=== PATIENT | female | born 1995 | race Caucasian/White ===

== ENCOUNTER 2018-02-14 03:37 | Emergency (ER) | payer OTHER ==
--- NOTE | 2018-02-14 03:48 | ED ---
Substance Abuse/Use - HPI Summary HPI Summary: This patient is a 22 year old F BIBA to [facility] due to etoh intoxication prior to arrival. Patient states she had 8 drinks of liquor this evening. She reports nausea, vomiting, and mild abdominal pain. - History Of Current Complaint Chief Complaint: EDSubstanceAbuse Stated Complaint: ETOH Hx Obtained From: Patient Onset/Duration of Drug/ETOH Abuse: Hours Overdose Characteristics: Oral Aggravating Factor(s): Nothing Alleviating Factor(s): Nothing Associated Signs And Symptoms: Nausea, Vomiting - Allergies/Home Medications Allergies/Adverse Reactions: Allergies Allergy/AdvReac Type Severity Reaction Status Date / Time No Known Allergies Allergy Verified 02/14/18 03:45 Home Medications: Home Medications NK [No Home Medications Reported] 02/14/18 [History Confirmed 02/14/18] PMH/Surg Hx/FS Hx/Imm Hx Respiratory History: Denies: Hx Asthma EENT History: Denies: Hx Deafness Infectious Disease History: No Infectious Disease History: Denies: Traveled Outside the [place] in Last 30 Days - Family History Known Family History: Negative: Cardiac Disease - Social History Occupation: Student Alcohol Use: Occasionally Substance Use Type: Reports: None Smoking Status (MU): Never Smoked Tobacco Review of Systems Positive: Other - etoh intoxication Positive: Abdominal Pain, Vomiting, Nausea All Other Systems Reviewed And Are Negative: Yes Physical Exam - Summary Physical Exam Summary: Appearance: Well-nourished, lying in bed comfortably, appears intoxicated, answers questions slowly and quietly, appears nauseated Skin: Warm, dry, no obvious rash Eyes: sclera anicteric, no conjunctival pallor ENT: mucous membranes moist, pharynx appears normal Neck: Supple, nontender Respiratory: Clear to auscultation, no signs of respiratory distress Cardiovascular: Normal S1, S2. No murmurs. Normal distal pulses in tibial and radial bilaterally. Abdomen: Soft, nontender, normal active bowel sounds present Musculoskeletal: Normal, Strength/ROM Intact Neurological: A&Ox3, awake and alert, mentation is normal, speech is fluent and appropriate Psychiatric: affect is normal, does not appear anxious or depressed Triage Information Reviewed: Yes Vital Signs On Initial Exam: Initial Vitals Temp Pulse Resp BP Pulse Ox 97.4 F 74 16 100/72 96 02/14/18 03:41 02/14/18 03:41 02/14/18 03:41 02/14/18 03:41 02/14/18 03:41 Vital Signs Reviewed: Yes Diagnostics - Vital Signs Vital Signs Temp Pulse Resp BP Pulse Ox 02/14/18 03:41 97.4 F 74 16 100/72 96 - Laboratory Lab Statement: Any lab studies that have been ordered have been reviewed, and results considered in the medical decision making process. Course/Dx - Course Course Of Treatment: 22 year old F BIBA to [facility] due to etoh intoxication prior to arrival. Patient states she had 8 drinks of liquor this evening. She reports nausea, vomiting, and mild abdominal pain. While in ED patient slept without disruption. Her boyfriend will drive her home when she wakes. Patient is discharged. Discharge - Sign-Out/Discharge Documenting (check all that apply): Patient Departure - discharge - Discharge Plan Condition: Good Disposition: HOME Patient Education Materials: Alcohol Intoxication (ED), Abuse of Alcohol (ED) Referrals: [facility] [Outside] - Attestation Statements Document Initiated by Scribe: Yes Documenting Scribe: Raven Ly Provider For Whom Scribe is Documenting (Include Credential): César Carrion MD Scribe Attestation: Raven Tejada, scribed for César Carrion MD on 02/14/18 at 0620.
[2018-02-14 07:02] VITALS: BP 100/55
== END 2018-02-14 07:02 | disposition home or self-care (01) ==
LOC: ED 03:37
DX: F10.129 Alcohol abuse with intoxication, unspecified (principal)
CPT/HCPCS: 99282